=== PATIENT | female | born 1995 | race African-American/Black ===

== ENCOUNTER 2018-07-08 19:27 | Emergency (ER) | payer SELFPAY ==
[~2018-07-08] VITALS: Ht 167.6 cm; Wt 73.0 kg
[2018-07-08] MEDS ORDERED: ONDANSETRON HCL 4MG/2ML INJ IM STA (22:02)
[2018-07-08] MEDS ORDERED: ONDANSETRON 4MG ODT PO ONE (23:30)
[2018-07-09 02:30] VITALS: BP 123/93
== END 2018-07-09 03:38 | disposition home or self-care (01) ==
LOC: ER 19:27
DX: T40.7X5A Adverse effect of cannabis (derivatives), initial encounter (principal); F12.10 Cannabis abuse, uncomplicated; Y92.89 Other specified places as the place of occurrence of the external cause
CPT/HCPCS: 99283; Q0162; Z7610; J2405